=== PATIENT | female | born 1955 | race Caucasian/White ===

== ENCOUNTER 2018-02-25 20:26 | Emergency (ER) | payer MEDICARE ==
[~2018-02-25] VITALS: Ht 170.2 cm; Wt 70.5 kg
[2018-02-25 20:31] VITALS: Ht 170.2 cm; Wt 70.5 kg
[2018-02-25] MEDS ORDERED: ULTRAM50 MG (20:34)
[2018-02-25] MEDS ORDERED: CLONAZEPAM0.125 MG/T (20:34)
[2018-02-25 21:06] LABS: BASOPHILS 0.2 % (0-2); EOSINOPHILS 0.3 % (0-7); HEMATOCRIT 26.7 % (36.0-48.0); HEMOGLOBIN 8.6 g/dL (12-16); IMMATURE GRANULOCYTES 0.2 % (0-5); LYMPHOCYTES 18.8 % (15-50); MCH 29.5 pg (26.0-34.0); MCHC 32.2 g/dL (31.0-37.0); MCV 91.4 fL (80.0-100.0); MEAN PLATELET VOLUME 10.5 fL (7.4-10.4); NEUTROPHILS 72.5 % (40-80); PLATELET COUNT 218 10x3/uL (130-400); RBC 2.92 10x6/uL (4.00-5.40); RDW 14.4 % (11.5-14.5); WBC 12.1 10x3/uL (4.8-10.8)
[2018-02-25 21:22] LABS: ALBUMIN 2.4 g/dL (3.4-5.0); ANION GAP 14.6 mmol/L (8-16); BILIRUBIN - TOTAL 0.56 mg/dL (0.2-1.3); CALCIUM 8.3 mg/dL (8.5-10.1); CARBON DIOXIDE 26.3 mmol/L (21.0-32.0); CREATININE - SERUM 0.9 mg/dL (0.6-1.3); PROTEIN - SERUM 7.7 g/dL (6.4-8.2)
[2018-02-25 21:23] LABS: APPEARANCE HAZY (CLEAR); COLOR YELLOW (YELLOW); POTASSIUM - SERUM 2.9 mmol/L (3.5-5.1)
[2018-02-25 21:24] LABS: BILIRUBIN NEGATIVE (NEGATIVE); EPITHELIAL CELLS RARE /hpf (0-5); GLUCOSE NEGATIVE (NEGATIVE); KETONE NEGATIVE (NEGATIVE); NITRITE POSITIVE (NEGATIVE); PROTEIN 1+ mg/dL (NEGATIVE); RED CELLS - URINE 0-5 /hpf (0-5); UROBILINOGEN NORMAL (NORMAL)
[2018-02-25 21:25] LABS: BACTERIA MANY /hpf (NONE SEEN)
[2018-02-26] MEDS ORDERED: LEVAQUIN500 MG PO (00:11)
[2018-02-26 00:29] VITALS: BP 132/74
== END 2018-02-26 00:31 | disposition home or self-care (01) ==
LOC: D.ER 20:26
PROVIDERS: Family Medicine
DX: N39.0 Urinary tract infection, site not specified (principal); E87.6 Hypokalemia; K21.9 Gastro-esophageal reflux disease without esophagitis; F17.200 Nicotine dependence, unspecified, uncomplicated

== ENCOUNTER 2018-02-28 00:22 | Inpatient (IN) | payer MEDICARE ==
[~2018-02-28] VITALS: Ht 170.2 cm; Wt 70.5 kg
--- NOTE | ~2018-02-28 | HP ---
PATIENT: LARISSA DALY MEDICAL RECORD: [id number] ACCOUNT: [id number] LOCATION:[id number] : 51 ADMISSION DATE: 02/28/18 HISTORY AND PHYSICAL EXAMINATION DATE OF ADMISSION: 02/28/2018 CHIEF COMPLAINT: Upper right chest pain. HISTORY OF PRESENT ILLNESS: The patient is a 62-year-old female who apparently is cared for by Dr. Perez who is not on staff here. Dr[facility] Deluca [facility]. Therefore, the patient is admitted to his services. The patient states for the past couple of weeks, she has had pain in the right anterior chest. She had presented to the Emergency Room on 02/25/2018, was treated for urinary tract infection and discharged home. She stated that the pain continued to worsen last night. She presented for followup. It was felt the patient warranted admission. PAST MEDICAL HISTORY: Significant that she has had a cholecystectomy. She has had 3 children. She has had a history of anxiety as well as having depression, as well as gastroesophageal reflux. FAMILY HISTORY: Father committed suicide at 56. Mother of complication of diabetes at 82. SOCIAL HISTORY: The patient was born in [place], has lived in [place]. She does live with a male chemical processor. She is a . HABITS: The patient is a smoker and has been a pack a day smoker since her teens. She denies any ethanol use. ALLERGIES: The patient has no known drug allergies. REVIEW OF SYSTEMS: GENERAL: She denies any headaches, seizure or syncope. HEENT: She denies change in visual or auditory acuity. PULMONARY: She does report increasing shortness of breath. She has had a mild cough, no sputum production. CARDIOVASCULAR: She has had right lower chest pain. She has had no other chest pain, no diaphoresis. GASTROINTESTINAL: No chronic nausea, vomiting, melena or hematochezia. GENITOURINARY: No urinary frequency or dysuria. PHYSICAL EXAMINATION: VITAL SIGNS: In the Emergency Room, the patient's temperature was 99, her pulse was 86, respirations 18, blood pressure 130/70, her pulse ox is 95. HEENT: Head is normocephalic. No lesions. Ears: TMs clear. Eyes: Pupils equal, round, reactive to light. Her extraocular movements intact. Her nasal cavity, oral cavity and oropharynx clear. NECK: Supple. There is no adenopathy. HEART: Has a regular rate and rhythm without murmurs, gallops or rubs. LUNGS: Clear. CHEST: She does have some pain in the right mid axillary line in the right lower chest. She has no organomegaly. ABDOMEN: Soft, nontender. HISTORY AND PHYSICAL [id number] LARISSA DALY EXTREMITIES: Lower extremities have 1+ edema. LABORATORY DATA: White count is 13, hemoglobin is 8.5, hematocrit is 25.6, her platelets are 246. She has sodium of 135, potassium 3.7, chloride is 98, CO2 is 24.6, her BUN is 16, creatinine is 1. She had elevated AST at 174, ALT is 127, alkaline phosphatase is 200. She has an albumin level of 2.2, 1+ protein in her urine, urobilinogen is 8. The patient had a white blood cell count 5-10 per high power field, moderate bacteria. IMAGING: She had an EKG. The EKG revealed normal sinus rhythm, rate is 64. She had an abdominal CT scan showing multiple issues. She had a right lower lobe airspace infiltrate likely combination of pneumonia or atelectasis and small right pleural effusion. She also had a splenic hypodensity most compatible with splenic infarct involving slightly less than one-quarter of the volume of the spleen, nonspecific hepatic hypodensity was seen for which was indicated a hepatic ultrasound as well as an MRI of the abdomen with and without contrast. She had a 3.6 cm hypodense lesion in the right hepatic lobe, likely a cyst. Focal fatty infiltrates were noted. The patient also had a nonspecific 1.14 cm right middle lobe nodule, could not exclude neoplasm. The patient also had mild pyelonephritis in both kidneys. She has had a right hip arthroplasty. ASSESSMENT: 1. Right upper chest pain, felt to be secondary to right pleural effusion. 2. Leukocytosis with anemia. 3. Hepatocellular dysfunction, status post cholecystectomy, liver lesion as well as right middle lobe nonspecific lesion concerning for neoplasm. 4. Possible splenic infarct. 5. History of depression and anxiety. 6. Gastroesophageal reflux. PLAN: The patient is admitted. Surgical consultation will be obtained. She will have anemia profile. She will also have stool for guaiac. The patient will have a hepatitis profile drawn. Also, we will have a hepatic ultrasound as well as an MRI with and without contrast of the abdomen as well as CT of the chest with and without contrast. Continue to evaluate this patient. She will be placed on Rocephin 1 gram q.24 hours. Blood culture and urine culture will be obtained as well. TRANSINT:[id number] Voice Confirmation ID: [id number] DOCUMENT ID: [id number] NIXON DONG MD at 0714 CC: [id number] DICTATION DATE: 02/28/18911 LINEN KEEPER: 02/28/18 1119 DIS IN 03/02/18 [id number] [place] [address]
--- NOTE | ~2018-02-28 | DS ---
PATIENT:LARISSA DALY :51 MEDICAL RECORD: [id number] DISCHARGE SUMMARY ADMISSION DATE: 02/28/18 DISCHARGE DATE: 03/02/18 DATE OF ADMISSION: 02/28/2018. DATE OF DISCHARGE: 03/02/2018. ADMISSION DIAGNOSES: Right upper chest pain, right pleural effusion, leukocytosis with anemia, hepatocellular dysfunction, status post cholecystectomy, possible splenic infarct, depression and anxiety, GERD. DISCHARGE DIAGNOSES: Anemia, splenic infarct, leukocytosis, pyelonephritis, pulmonary nodule. CONSULTS: Oncology, Dr. Espinal. General surgery, Dr. Benjamin. HOSPITAL COURSE: The patient was admitted unassigned medicine to the Emergency Room with the above symptoms with findings, was started on empiric antibiotics. Cultures were obtained. Appropriate consults were made. Care plan in place. The patient with family members left AMA declining any further intervention at this facility. See chart for further details. Appreciate consults on this case. TRANSINT:[id number] Voice Confirmation ID: [id number] DOCUMENT ID: [id number] AMARI COX DO at 1440 CC: [id number] DICTATION DATE: 04/30/18 1429 WALL ATTENDANT: 04/30/18 1438 DIS IN 03/02/18 [facility] [address] [place] [address]
[~2018-02-28 00:22] MED LIST: CLONAZEPAM0.125 MG/T; LEVAQUIN500 MG PO; ULTRAM50 MG
[2018-02-28 02:54] LABS: BASOPHILS 0.2 % (0-2); EOSINOPHILS 0 % (0-7); HEMATOCRIT 25.6 % (36.0-48.0); HEMOGLOBIN 8.5 g/dL (12-16); IMMATURE GRANULOCYTES 0.2 % (0-5); LYMPHOCYTES 10.9 % (15-50); MCH 29.5 pg (26.0-34.0); MCHC 33.2 g/dL (31.0-37.0); MCV 88.9 fL (80.0-100.0); MEAN PLATELET VOLUME 10.6 fL (7.4-10.4); MONOCYTES 7.1 % (2-11); NEUTROPHILS 81.6 % (40-80); PLATELET COUNT 246 10x3/uL (130-400); RBC 2.88 10x6/uL (4.00-5.40); RDW 14.4 % (11.5-14.5)
[2018-02-28 03:06] LABS: ALBUMIN 2.2 g/dL (3.4-5.0); ANION GAP 16.1 mmol/L (8-16); BILIRUBIN - TOTAL 0.93 mg/dL (0.2-1.3); CALCIUM 8.6 mg/dL (8.5-10.1); CARBON DIOXIDE 24.6 mmol/L (21.0-32.0); POTASSIUM - SERUM 3.7 mmol/L (3.5-5.1); PROTEIN - SERUM 7.7 g/dL (6.4-8.2)
[2018-02-28 03:10] LABS: APPEARANCE HAZY (CLEAR); COLOR DK YELLOW (YELLOW); NITRITE NEGATIVE (NEGATIVE)
[2018-02-28 03:11] LABS: BILIRUBIN NEGATIVE (NEGATIVE); GLUCOSE NEGATIVE (NEGATIVE); KETONE SMALL mg/dL (NEGATIVE); PROTEIN 1+ mg/dL (NEGATIVE)
[2018-02-28 03:12] LABS: BACTERIA MODERATE /hpf (NONE SEEN); EPITHELIAL CELLS 0-5 /hpf (0-5); GRANULAR CAST OCC /lpf (NONE SEEN); RED CELLS - URINE 0-5 /hpf (0-5)
[2018-02-28 08:30] VITALS: BP 111/60
[2018-02-28 09:34] LABS: % SATURATION 9 % (15-55); IRON 18 ug/dl (35-150); TOTAL IRON BIND CAPACITY 181 ug/dl (260-445); UNSAT IRON BIND CAPACITY 163 ug/dl (150-375)
[2018-02-28 10:00] VITALS: BP 117/63
[2018-02-28 10:10] LABS: T4 THYROXINE 10.2 ug/dL (4.7-13.3); THYROID STIMULATING HORMONE 0.93 uIU/mL (0.36-3.74)
[2018-02-28 13:39] VITALS: BP 116/50
[2018-02-28] MEDS ORDERED: CELEXA20 MG PO (16:13)
[2018-02-28] MEDS ORDERED: KLONOPIN1 MG PO (16:13)
[2018-02-28] MEDS ORDERED: CYCLOBENZAPRINE10 MG PO (16:14)
[2018-02-28] MEDS ORDERED: OMEPRAZOLE20 M1 PO (16:14)
[2018-02-28] MEDS ORDERED: PRAVASTATIN SOD10 MG PO (16:15)
[2018-02-28 17:04] VITALS: BP 126/52; BMI 24.3
[2018-02-28 20:00] VITALS: BP 93/49
[2018-03-01] VITALS: BP 111/57
[2018-03-01 04:00] VITALS: BP 123/57
[2018-03-01 04:48] LABS: BASOPHILS 0.2 % (0-2); EOSINOPHILS 0.3 % (0-7); HEMATOCRIT 24.9 % (36.0-48.0); HEMOGLOBIN 8.2 g/dL (12-16); IMMATURE GRANULOCYTES 0.5 % (0-5); LYMPHOCYTES 7.2 % (15-50); MCH 29.3 pg (26.0-34.0); MCHC 32.9 g/dL (31.0-37.0); MCV 88.9 fL (80.0-100.0); MEAN PLATELET VOLUME 11.2 fL (7.4-10.4); MONOCYTES 8.3 % (2-11); NEUTROPHILS 83.5 % (40-80); PLATELET COUNT 219 10x3/uL (130-400); RDW 14.4 % (11.5-14.5)
[2018-03-01 05:24] LABS: ALBUMIN 1.9 g/dL (3.4-5.0); BILIRUBIN - TOTAL 0.88 mg/dL (0.2-1.3); CALCIUM 8.3 mg/dL (8.5-10.1); CREATININE - SERUM 0.9 mg/dL (0.6-1.3); POTASSIUM - SERUM 3.4 mmol/L (3.5-5.1); PROTEIN - SERUM 6.8 g/dL (6.4-8.2)
[2018-03-01 05:28] LABS: ANION GAP 13.7 mmol/L (8-16); CARBON DIOXIDE 25.7 mmol/L (21.0-32.0)
[2018-03-01 07:47] VITALS: BP 98/46
[2018-03-01 12:13] VITALS: BP 113/50
[2018-03-01 15:58] VITALS: BP 103/40
[2018-03-01 20:00] VITALS: BP 111/50
[2018-03-02 03:48] VITALS: BP 134/71
[2018-03-02 05:18] LABS: BASOPHILS 0.5 % (0-2); EOSINOPHILS 0.7 % (0-7); IMMATURE GRANULOCYTES 0.4 % (0-5); LYMPHOCYTES 13.3 % (15-50); MCH 29.5 pg (26.0-34.0); MCHC 33.5 g/dL (31.0-37.0); MCV 87.9 fL (80.0-100.0); MEAN PLATELET VOLUME 10.7 fL (7.4-10.4); MONOCYTES 9.3 % (2-11); NEUTROPHILS 75.8 % (40-80); PLATELET COUNT 238 10x3/uL (130-400); RDW 14.3 % (11.5-14.5); WBC 11.2 10x3/uL (4.8-10.8)
[2018-03-02 05:19] LABS: HEMATOCRIT 31.9 % (36.0-48.0); HEMOGLOBIN 10.7 g/dL (12-16); RBC 3.63 10x6/uL (4.00-5.40)
[2018-03-02 05:21] LABS: APTT 46.9 SECONDS (22.8-39.4); INR 1.23 (0.85-1.17); PROTIME 15.1 SECONDS (11.6-15.0)
[2018-03-02 05:23] LABS: ALBUMIN 1.9 g/dL (3.4-5.0); ANION GAP 11.9 mmol/L (8-16); BILIRUBIN - TOTAL 0.97 mg/dL (0.2-1.3); CALCIUM 8.1 mg/dL (8.5-10.1); CARBON DIOXIDE 27.2 mmol/L (21.0-32.0); POTASSIUM - SERUM 3.1 mmol/L (3.5-5.1); PROTEIN - SERUM 6.8 g/dL (6.4-8.2)
[2018-03-02 08:06] VITALS: Ht 170.2 cm; Wt 70.5 kg
[2018-03-02 08:58] VITALS: BP 126/62
[2018-03-02 09:14] LABS: FOLATE (FOLIC ACID) - SERUM >20.0 ng/mL (>3.0)
[2018-03-02 14:18] LABS: HEPATITIS C ANTIBODY >11.0 (0.0-0.9)
[2018-03-02 20:42] VITALS: BP 152/73
[2018-03-03 07:21] LABS: CEA 7.3 ng/mL (0.0-4.7)
== END 2018-03-02 22:24 | disposition left against medical advice (07) | DRG 175 ==
LOC: D.ER 00:22 → D.EDHOLD 09:11 → D.MS 09:11
PROVIDERS: Family Medicine; Internal Medicine Medical Oncology
DX: I26.99 Other pulmonary embolism without acute cor pulmonale (principal); J18.9 Pneumonia, unspecified organism; J90 Pleural effusion, not elsewhere classified; N12 Tubulo-interstitial nephritis, not specified as acute or chronic; D72.829 Elevated white blood cell count, unspecified; D64.9 Anemia, unspecified; K76.9 Liver disease, unspecified; R91.8 Other nonspecific abnormal finding of lung field; K21.9 Gastro-esophageal reflux disease without esophagitis; F32.9 Major depressive disorder, single episode, unspecified; F41.9 Anxiety disorder, unspecified; E78.5 Hyperlipidemia, unspecified; D73.5 Infarction of spleen; J44.9 Chronic obstructive pulmonary disease, unspecified